=== PATIENT | male | born 1995 | race African-American/Black ===

== ENCOUNTER 2018-06-08 19:52 | Emergency (ER) | payer SELFPAY ==
[2018-06-08 19:58] VITALS: BP 124/68; TEMP 97.8
[2018-06-08 21:17] VITALS: PULSE 68
== END 2018-06-08 21:18 | disposition home or self-care (01) ==
LOC: COL.ER 19:52
DX: M54.2 Cervicalgia (principal); F17.210 Nicotine dependence, cigarettes, uncomplicated

== ENCOUNTER 2019-11-27 13:34 | Emergency (ER) | payer SELFPAY ==
[~2019-11-27] VITALS: Ht 177.8 cm; Wt 55.5 kg
[2019-11-27 13:41] VITALS: BP 116/80; TEMP 97.3
[2019-11-27 15:15] VITALS: PULSE 72
== END 2019-11-27 15:20 | disposition home or self-care (01) ==
LOC: COL.ER 13:34
DX: J10.1 Influenza due to other identified influenza virus with other respiratory manifestations (principal)

== ENCOUNTER 2020-12-14 13:56 | Emergency (ER) | payer SELFPAY ==
[~2020-12-14] VITALS: Ht 177.8 cm; Wt 65.9 kg
[2020-12-14 14:00] VITALS: TEMP 98
[2020-12-14 15:26] VITALS: BP 120/72; PULSE 78
[2021-07-11] MEDS ORDERED: FLONASEALLERGY NS (03:59)
== END 2020-12-14 15:15 | disposition home or self-care (01) ==
LOC: COL.ER 13:56
DX: T17.990A Other foreign object in respiratory tract, part unspecified in causing asphyxiation, initial encounter (principal)
CPT/HCPCS: J1885

== ENCOUNTER 2020-12-25 15:17 | Emergency (ER) | payer SELFPAY ==
[~2020-12-25] VITALS: Ht 175.3 cm; Wt 61.4 kg
[2020-12-25 15:29] VITALS: BP 129/91; TEMP 98.5
[2020-12-25] MEDS ORDERED: MEDROL 4MG DOSPA4 MG PO (16:11)
[2020-12-25] MEDS ORDERED: ZITHROMAX Z PA250 MG PO (16:11)
[2020-12-25 16:22] LABS: BASO % 0.4 % (0.0-2.0); EOS # 0.1 (0.0-0.7); GRAN # 2.2 (1.4-6.5); GRAN % 43.7 % (42.2-75.2); HEMATOCRIT 40.5 % (42.0-52.0); HEMOGLOBIN 13.8 g/dl (13.5-18.0); LYMPH % 40.2 % (20.0-51.0); MEAN CELL VOLUME 88 fl (80.0-100.0); MEAN CORPUSCULAR HEMOGLOBIN 30 pg (27.0-31.0); MEAN CORPUSCULAR HGB CONC 34 g/dl (33.0-37.0); MEAN PLATELET VOLUME 11.1 fl (7.4-10.4); MONO # 0.7 (0.1-0.6); MONO % 14.5 % (1.7-9.3); PLATELET COUNT 233 K/mm3 (130-400); RED BLOOD COUNT 4.59 M/mm3 (4.20-5.60)
[2020-12-25 16:53] VITALS: PULSE 81
[2021-07-11] MEDS ORDERED: FLONASEALLERGY NS (03:59)
== END 2020-12-25 16:54 | disposition home or self-care (01) ==
LOC: COL.ER 15:17
PROVIDERS: Physician Assistant
DX: J40 Bronchitis, not specified as acute or chronic (principal); R04.2 Hemoptysis

== ENCOUNTER 2021-05-04 08:45 | Emergency (ER) | payer SELFPAY ==
[~2021-05-04] VITALS: Ht 170.2 cm; Wt 59.1 kg
[~2021-05-04 08:45] MED LIST: MEDROL 4MG DOSPA4 MG PO; ZITHROMAX Z PA250 MG PO
[2021-05-04 09:20] VITALS: BP 121/81; TEMP 97.9
[2021-05-04 11:19] VITALS: PULSE 90
[2021-07-11] MEDS ORDERED: FLONASEALLERGY NS (03:59)
== END 2021-05-04 11:19 | disposition home or self-care (01) ==
LOC: COL.ER 08:45
DX: S62.666A Nondisplaced fracture of distal phalanx of right little finger, initial encounter for closed fracture (principal); W22.8XXA Striking against or struck by other objects, initial encounter; Y93.67 Activity, basketball

== ENCOUNTER 2021-05-21 08:59 | Emergency (ER) | payer SELFPAY ==
[~2021-05-21] VITALS: Ht 177.8 cm; Wt 61.4 kg
[2021-05-21 09:04] VITALS: BP 122/79; TEMP 98
[2021-05-21 10:23] VITALS: PULSE 67
[2021-07-11] MEDS ORDERED: FLONASEALLERGY NS (03:59)
== END 2021-05-21 10:24 | disposition home or self-care (01) ==
LOC: COL.ER 08:59
DX: S62.636A Displaced fracture of distal phalanx of right little finger, initial encounter for closed fracture (principal); X58.XXXA Exposure to other specified factors, initial encounter

== ENCOUNTER 2021-06-05 10:00 | Emergency (ER) | payer SELFPAY ==
[~2021-06-05] VITALS: Ht 175.3 cm; Wt 61.4 kg
[2021-06-05 10:36] VITALS: TEMP 98.3
[2021-06-05] MEDS ORDERED: PROAIR HFA0.09 MG/AC IH (11:53)
[2021-06-05] MEDS ORDERED: ZITHROMAX Z PA250 MG PO (11:53)
[2021-06-05 12:06] VITALS: BP 125/82; PULSE 86
[2021-07-11] MEDS ORDERED: FLONASEALLERGY NS (03:59)
== END 2021-06-05 12:07 | disposition home or self-care (01) ==
LOC: COL.ER 10:00
DX: J21.9 Acute bronchiolitis, unspecified (principal); Z20.822 Contact with and (suspected) exposure to COVID-19

== ENCOUNTER 2021-07-06 08:48 | Emergency (ER) | payer SELFPAY ==
[~2021-07-06] VITALS: Ht 175.3 cm; Wt 63.6 kg
[~2021-07-06 08:48] MED LIST changes: +PROAIR HFA0.09 MG/AC IH
[2021-07-06 08:52] VITALS: TEMP 97.7
[2021-07-06] MEDS ORDERED: MOBIC15 MG PO (09:14)
[2021-07-06] MEDS ORDERED: FLEXERIL 1010 MG/TAB PO (09:14)
[2021-07-06 09:24] VITALS: BP 130/70; PULSE 60
[2021-07-11] MEDS ORDERED: FLONASEALLERGY NS (03:59)
== END 2021-07-06 09:25 | disposition home or self-care (01) ==
LOC: COL.ER 08:48
DX: S46.812A Strain of other muscles, fascia and tendons at shoulder and upper arm level, left arm, initial encounter (principal); X50.9XXA Other and unspecified overexertion or strenuous movements or postures, initial encounter; X50.0XXA Overexertion from strenuous movement or load, initial encounter

== ENCOUNTER 2021-08-06 20:57 | Emergency (ER) | payer SELFPAY ==
[~2021-08-06] VITALS: Ht 175.3 cm; Wt 61.4 kg
[~2021-08-06 20:57] MED LIST changes: +FLEXERIL 1010 MG/TAB PO; +FLONASEALLERGY NS; +MOBIC15 MG PO
[2021-08-06 22:20] VITALS: BP 118/77; PULSE 72; TEMP 98.4
== END 2021-08-06 22:20 | disposition home or self-care (01) ==
LOC: COL.ER 20:57
DX: S60.221A Contusion of right hand, initial encounter (principal); W22.8XXA Striking against or struck by other objects, initial encounter

== ENCOUNTER 2021-10-02 16:54 | Emergency (ER) | payer SELFPAY ==
[~2021-10-02] VITALS: Ht 177.8 cm; Wt 61.4 kg
[2021-10-02 17:18] VITALS: TEMP 98.1
[2021-10-02 18:31] VITALS: BP 132/66; PULSE 64
== END 2021-10-02 18:31 | disposition home or self-care (01) ==
LOC: COL.ER 16:54
DX: Z20.822 Contact with and (suspected) exposure to COVID-19 (principal)